=== PATIENT | male | born 1945 | race Caucasian/White ===

== ENCOUNTER 2023-02-20 20:26 | Inpatient (IN) | payer OTHER ==
[~2023-02-20] VITALS: Ht 177.8 cm; Wt 104.3 kg
[2023-02-20] MEDS ORDERED: ALBUTEROL FS 2.5 MG/3 ML VIAL.NEB ONE (20:42)
[2023-02-20] MEDS ORDERED: IPRATROPIUM NEB FS 0.5 MG/2.5 ML AMPUL.NEB ONE (20:42)
[2023-02-20] MEDS: ALBUTEROL FS 2.5 MG/3 ML VIAL.NEB NEB ONE ×2 (21:13→22:26)
[2023-02-20] MEDS ORDERED: methylPREDNISolone SOD SUCC 125 MG/2ML VIAL IV ONE (21:30)
[2023-02-20] MEDS ORDERED: methylPREDNISolone SOD SUCC 125 MG/2ML VIAL ONE (21:31)
[2023-02-20 22:22] LABS: BASOPHILS # (AUTO) 0.1 K/uL (0.0-0.2); BASOPHILS % (AUTO) 0.7 % (0.0-2.0); EOSINOPHILS % (AUTO) 0.5 % (0.0-6.0); HEMATOCRIT 53 % (39-51); HEMOGLOBIN 16.9 g/dL (13.5-17.5); LYMPHOCYTES # (AUTO) 1.8 K/uL (0.8-4.8); LYMPHOCYTES % (AUTO) 21.2 % (20.0-44.0); MEAN CORPUSCULAR HEMOGLOBIN 27 PG (26.0-33.0); MEAN CORPUSCULAR HGB CONC 32 g/dl (31.0-36.0); MEAN CORPUSCULAR VOLUME 85 fL (80-96); MONOCYTES % (AUTO) 11.3 % (2.0-12.0); NEUTROPHILS # (AUTO) 5.8 K/uL (1.8-8.9); NEUTROPHILS % (AUTO) 66.3 % (43.0-81.0); PLATELET COUNT (AUTO) 154 K/uL (150-450); RED CELL DISTRIBUTION WIDTH 15.4 % (11.5-15.0); WHITE BLOOD COUNT (AUTO) 8.7 K/uL (4.3-11.0)
[2023-02-20 22:26] VITALS: O2SAT 98
[2023-02-20] MEDS ORDERED: ALBUTEROL FS 2.5 MG/3 ML VIAL.NEB CONTNEB ONE (22:30)
[2023-02-20] MEDS ORDERED: IPRATROPIUM NEB FS 0.5 MG/2.5 ML AMPUL.NEB NEB ONE (22:30)
[2023-02-20 22:35] LABS: INR 1.56 (0.91-1.10); PARTIAL THROMBOPLASTIN TIME 39.3 SEC (24.3-34.3); PROTHROMBIN TIME 16.1 SECS (9.2-11.1)
[2023-02-20 23:09] LABS: CALCIUM, SERUM 9.1 mg/dL (8.5-10.1); CARBON DIOXIDE 28 mmol/L (21-32); CHLORIDE 98 mmol/L (98-107); CREATININE 1.5 mg/dL (0.6-1.3); GLUCOSE 111 mg/dL (74-106); POTASSIUM 3.4 mmol/L (3.5-5.1); SODIUM SERUM 135 mmol/L (136-145); UREA NITROGEN, BLOOD 19 mg/dL (7-18)
[2023-02-20 23:13] LABS: LACTIC ACID 1.9 mmol/L (0.4-2.0)
[2023-02-20 23:26] VITALS: O2SAT 99
[2023-02-20 23:43] LABS: ALANINE AMINOTRANSFERASE 11 U/L (12-78); ALBUMIN 3.4 g/dL (3.4-5.0); ALKALINE PHOSPHATASE 110 U/L (46-116); ASPARTATE AMINOTRANSFERASE 20 U/L (15-37); BILIRUBIN,DIRECT 0.3 mg/dL (0.0-0.2); BILIRUBIN,TOTAL 0.9 mg/dL (0.2-1.0); NT-PRO BNP 1660 pg/mL (0-125); TOTAL PROTEIN, SERUM 8.3 g/dL (6.4-8.2)
[2023-02-21] MEDS ORDERED: ASPIRIN 325 MG TABLET PO ONE
[2023-02-21] MEDS ORDERED: ASPIRIN 325 MG TABLET ONE (00:04)
[2023-02-21 01:30] VITALS: BP 130/67; TEMP 97.7; O2SAT 96
[2023-02-21] MEDS ORDERED: IPRATROPIUM NEB FS 0.5 MG/2.5 ML AMPUL.NEB NEB PRN (02:30)
[2023-02-21] MEDS ORDERED: ACETAMINOPHEN 325 MG TABLET PO PRN (02:30)
[2023-02-21] MEDS ORDERED: ONDANSETRON HCL/PF 4 MG/2 ML VIAL IVP PRN (02:30)
[2023-02-21] MEDS ORDERED: ALBUTEROL HALF STRENGTH 1.25 MG/3 ML VIAL.NEB NEB PRN (02:30)
[2023-02-21] MEDS ORDERED: ENOXAPARIN SODIUM 40 MG/0.4 ML DISP.SYRIN SQ SCH (02:30)
[2023-02-21 04:00] VITALS: BP 128/66; TEMP 98.2; O2SAT 100
[2023-02-21] MEDS: methylPREDNISolone SOD SUCC 125 MG/2ML VIAL IV SCH ×3 (05:31→20:20)
[2023-02-21] MEDS: POTASSIUM CHLORIDE 20 MEQ TAB.PRT.SR PO SCH ×3 (08:16→10:36)
[2023-02-21] MEDS: FUROSEMIDE 40 MG/4 ML VIAL IV SCH ×3 (08:16→16:55)
[2023-02-21] MEDS ORDERED: METF-440 PO (09:16)
[2023-02-21] MEDS ORDERED: ATOR20TA PO (09:16)
[2023-02-21] MEDS ORDERED: DAPA5TAB PO (09:16)
[2023-02-21] MEDS ORDERED: METO25TA20 PO (09:16)
[2023-02-21] MEDS ORDERED: ALBU18HF2 IH (09:16)
[2023-02-21] MEDS ORDERED: BUSP10TA3 PO (09:16)
[2023-02-21] MEDS ORDERED: CLON0.1T PO (09:16)
[2023-02-21] MEDS ORDERED: RIVA10TA PO (09:16)
[2023-02-21] MEDS ORDERED: SACU1TAB7 PO (09:16)
[2023-02-21] MEDS ORDERED: DEXTROSE 50%-WATER 50 ML DISP.SYRIN IV PRN (11:00)
[2023-02-21] MEDS ORDERED: *INSULIN REGULAR(HUMULIN R)HUM 100 UNIT/ML VIAL SQ PRN (11:00)
[2023-02-21] MEDS: LEVOFLOXACIN (250MG) 250 MG TABLET PO SCH (12:20)
[2023-02-21] MEDS: BLOOD SUGAR DIAGNOSTIC 1 EACH STRIP VI SCH ×3 (12:20→21:34)
[2023-02-21] MEDS: INSULIN REGULAR, HUMAN 100 UNIT/ML 3 ML VIAL SQ PRN ×3 (12:22→21:34)
[2023-02-21] MEDS ORDERED: busPIRone HCL 10 MG TABLET PO SCH (13:00)
[2023-02-21] MEDS: busPIRone 5 MG TABLET PO SCH ×2 (13:43→20:20)
[2023-02-21] MEDS ORDERED: busPIRone 5 MG TABLET PO SCH (14:00)
[2023-02-21] MEDS: METOPROLOL TARTRATE 25 MG TABLET PO SCH (16:57)
[2023-02-21] MEDS: SACUBITRIL/VALSARTAN 1 EACH TABLET PO SCH (17:06)
[2023-02-21] MEDS ORDERED: RIVAROXABAN 10 MG TABLET PO SCH (18:00)
[2023-02-21 20:00] VITALS: BP 140/86; TEMP 98; O2SAT 100
[2023-02-21 20:12] VITALS: O2SAT 95
[2023-02-21] MEDS: IPRATROPIUM NEB FS 0.5 MG/2.5 ML AMPUL.NEB NEB SCH (20:25)
[2023-02-21] MEDS: ALBUTEROL HALF STRENGTH 1.25 MG/3 ML VIAL.NEB NEB SCH (20:25)
[2023-02-21 20:27] VITALS: O2SAT 98
[2023-02-22] VITALS (12 sets, daily range): BP systolic 121–135; BP diastolic 51–76; TEMP 97.7–98.2; O2SAT 94–100
[2023-02-22] MEDS: IPRATROPIUM NEB FS 0.5 MG/2.5 ML AMPUL.NEB NEB SCH ×7 (00:15→23:30)
[2023-02-22] MEDS: ALBUTEROL HALF STRENGTH 1.25 MG/3 ML VIAL.NEB NEB SCH ×7 (00:15→23:30)
[2023-02-22] MEDS: methylPREDNISolone SOD SUCC 125 MG/2ML VIAL IV SCH ×3 (04:16→21:23)
[2023-02-22] MEDS: busPIRone 5 MG TABLET PO SCH ×3 (04:17→21:23)
[2023-02-22 07:43] LABS: BASOPHILS % (AUTO) 0.1 % (0.0-2.0); HEMATOCRIT 50 % (39-51); LYMPHOCYTES # (AUTO) 0.5 K/uL (0.8-4.8); LYMPHOCYTES % (AUTO) 3.8 % (20.0-44.0); MEAN CORPUSCULAR HEMOGLOBIN 27 PG (26.0-33.0); MEAN CORPUSCULAR HGB CONC 32 g/dl (31.0-36.0); MEAN CORPUSCULAR VOLUME 85 fL (80-96); MONOCYTES # (AUTO) 0.7 K/uL (0.1-1.30); MONOCYTES % (AUTO) 5.1 % (2.0-12.0); NEUTROPHILS # (AUTO) 12.8 K/uL (1.8-8.9); PLATELET COUNT (AUTO) 170 K/uL (150-450); RED BLOOD CELL COUNT(AUTO) 5.95 MIL/uL (4.5-6.0); RED CELL DISTRIBUTION WIDTH 15.4 % (11.5-15.0); WHITE BLOOD COUNT (AUTO) 14.1 K/uL (4.3-11.0)
[2023-02-22 08:21] LABS: ALBUMIN 2.7 g/dL (3.4-5.0); BILIRUBIN,TOTAL 0.4 mg/dL (0.2-1.0); CALCIUM, SERUM 8.8 mg/dL (8.5-10.1); CREATININE 1.3 mg/dL (0.6-1.3); MAGNESIUM 2.1 mg/dL (1.8-2.4); PHOSPHORUS 3.2 mg/dL (2.5-4.9); POTASSIUM 4.1 mmol/L (3.5-5.1); TOTAL PROTEIN, SERUM 7.3 g/dL (6.4-8.2)
[2023-02-22] MEDS: BLOOD SUGAR DIAGNOSTIC 1 EACH STRIP VI SCH ×4 (08:21→22:04)
[2023-02-22] MEDS: METOPROLOL TARTRATE 25 MG TABLET PO SCH ×2 (09:20→17:04)
[2023-02-22] MEDS: SACUBITRIL/VALSARTAN 1 EACH TABLET PO SCH ×2 (09:20→17:04)
[2023-02-22] MEDS: ATORVASTATIN 40 MG TABLET PO SCH (09:20)
[2023-02-22] MEDS: INSULIN REGULAR, HUMAN 100 UNIT/ML 3 ML VIAL SQ PRN ×3 (12:29→21:58)
[2023-02-22] MEDS: LEVOFLOXACIN (250MG) 250 MG TABLET PO SCH (12:32)
[2023-02-23] VITALS (8 sets, daily range): BP systolic 130–140; BP diastolic 68–84; TEMP 97–98.3; O2SAT 95–100
[2023-02-23] MEDS: busPIRone 5 MG TABLET PO SCH ×2 (04:06→12:21)
[2023-02-23] MEDS: methylPREDNISolone SOD SUCC 125 MG/2ML VIAL IV SCH ×2 (04:06→12:21)
[2023-02-23] MEDS: ALBUTEROL HALF STRENGTH 1.25 MG/3 ML VIAL.NEB NEB SCH ×3 (04:24→11:20)
[2023-02-23] MEDS: IPRATROPIUM NEB FS 0.5 MG/2.5 ML AMPUL.NEB NEB SCH ×3 (04:24→11:20)
[2023-02-23] MEDS: BLOOD SUGAR DIAGNOSTIC 1 EACH STRIP VI SCH ×2 (07:30→12:20)
[2023-02-23 08:11] LABS: EOSINOPHILS # (AUTO) 0.1 K/uL (0.0-0.7); EOSINOPHILS % (AUTO) 0.8 % (0.0-6.0); HEMATOCRIT 53 % (39-51); HEMOGLOBIN 16.6 g/dL (13.5-17.5); LYMPHOCYTES # (AUTO) 0.2 K/uL (0.8-4.8); LYMPHOCYTES % (AUTO) 1.6 % (20.0-44.0); MEAN CORPUSCULAR HEMOGLOBIN 27 PG (26.0-33.0); MEAN CORPUSCULAR HGB CONC 31 g/dl (31.0-36.0); MEAN CORPUSCULAR VOLUME 85 fL (80-96); MONOCYTES # (AUTO) 2.7 K/uL (0.1-1.30); MONOCYTES % (AUTO) 17.7 % (2.0-12.0); NEUTROPHILS # (AUTO) 12.2 K/uL (1.8-8.9); NEUTROPHILS % (AUTO) 79.9 % (43.0-81.0); PLATELET COUNT (AUTO) 183 K/uL (150-450); RED BLOOD CELL COUNT(AUTO) 6.26 MIL/uL (4.5-6.0); RED CELL DISTRIBUTION WIDTH 15.2 % (11.5-15.0); WHITE BLOOD COUNT (AUTO) 15.3 K/uL (4.3-11.0)
[2023-02-23 08:26] LABS: CALCIUM, SERUM 9.2 mg/dL (8.5-10.1); CREATININE 1.2 mg/dL (0.6-1.3); MAGNESIUM 2.3 mg/dL (1.8-2.4); PHOSPHORUS 2.9 mg/dL (2.5-4.9); POTASSIUM 4.2 mmol/L (3.5-5.1)
[2023-02-23] MEDS: INSULIN REGULAR, HUMAN 100 UNIT/ML 3 ML VIAL SQ PRN ×2 (08:49→12:21)
[2023-02-23] MEDS: METOPROLOL TARTRATE 25 MG TABLET PO SCH (08:49)
[2023-02-23] MEDS: ATORVASTATIN 40 MG TABLET PO SCH (08:49)
[2023-02-23] MEDS: SACUBITRIL/VALSARTAN 1 EACH TABLET PO SCH (08:50)
[2023-02-23] MEDS ORDERED: BUME0.5T6 PO (10:15)
[2023-02-23] MEDS ORDERED: AZIT250T PO (10:15)
[2023-02-23] MEDS ORDERED: PRED20TA PO (10:15)
[2023-02-23] MEDS: LEVOFLOXACIN (250MG) 250 MG TABLET PO SCH (12:21)
== END 2023-02-23 12:58 | DRG 280 ==
LOC: ER 20:29 → TELE1 02-21 00:06
PROVIDERS: ADMIT Nurse Practitioner Acute Care; ATTEND Nurse Practitioner Acute Care
DX: I11.0 Hypertensive heart disease with heart failure (principal); I50.33 Acute on chronic diastolic (congestive) heart failure; I21.A1 Myocardial infarction type 2; J96.01 Acute respiratory failure with hypoxia; N17.0 Acute kidney failure with tubular necrosis; D68.69 Other thrombophilia; E87.1 Hypo-osmolality and hyponatremia; E87.3 Alkalosis; J44.1 Chronic obstructive pulmonary disease with (acute) exacerbation; E66.01 Morbid (severe) obesity due to excess calories; E78.5 Hyperlipidemia, unspecified; E87.6 Hypokalemia; F17.200 Nicotine dependence, unspecified, uncomplicated; G47.33 Obstructive sleep apnea (adult) (pediatric); I48.0 Paroxysmal atrial fibrillation; Z95.0 Presence of cardiac pacemaker; Z68.33 Body mass index [BMI] 33.0-33.9, adult
CPT/HCPCS: 36415; 71045-TC; 80048-TC; 80053-TC; 80061-TC; 80076-TC; 82962-TC; 83605-TC; 83735-TC; 83880; 84100-TC; 84484-TC; 85025-TC; 85730-TC; 87040-TC; 87081-TC; 93307-TC; 94799-TC; 97110-TC; 97116-TC; 97530-TC; G0378; J1650; J1815; J1940; J2930